=== PATIENT | female | born 1980 | race Caucasian/White ===

== ENCOUNTER 2023-01-06 06:45 | Day surgery (SDC) | payer OTHER ==
[~2023-01-06] VITALS: Ht 167.6 cm; Wt 86.2 kg
[~2023-01-06 06:45] MED LIST: PRENATAL CAPLE1 EACH PO
[2023-01-06] MEDS ORDERED: IBU800 MG PO (10:17)
== END 2023-01-06 13:45 | disposition home or self-care (01) ==
LOC: CIR.AMB 06:45
PROVIDERS: ATTEND Obstetrics & Gynecology Gynecology
DX: Z30.2 Encounter for sterilization (principal); Z20.822 Contact with and (suspected) exposure to COVID-19